=== PATIENT | female | born 2000 | race Caucasian/White ===

== ENCOUNTER 2022-05-01 18:41 | Emergency (ER) | payer OTHER, SELFPAY ==
[2022-05-01 18:55] VITALS: BP 128/84; PULSE 117; RESP 18; TEMP 37.5; O2SAT 100
--- NOTE | 2022-05-01 19:13 | ED.SKABFB ---
HPI - Skin/Abscess/Foreign Bdy General Chief complaint: Skin/Abscess/Foreign Body Stated complaint: rash Time Seen by Provider: 05/01/22 18:43 Source: patient Mode of arrival: ambulatory Limitations: no limitations History of Present Illness HPI narrative: 22-year-old female presents to [facility] with complaints of itchy erythematous rash diffusely for the past 4 days. Patient reports that she has been taking kyrc-svs-yllydiy Benadryl and ibuprofen with little relief. Patient reports that she was diagnosed with COVID 6 days ago at [facility] emergency room. Patient denies shortness of breath, wheezing, trouble swallowing or difficulty breathing MD complaint: rash Onset (ago): day(s) (4) Location: generalized Quality: pruritic Exacerbating factors: none Context: none Treatments prior to arrival: Benadryl Related Data Allergies Allergy/AdvReac Type Severity Reaction Status Date / Time No Known Allergies Allergy Verified 05/01/22 19:04 Review of Systems Constitutional: Constitutional: Denies chills, Denies fatigue, Denies fever(s) and Denies weakness ENT: Denies vertigo and Denies dizziness Respiratory: Respiratory: Denies cough, Denies dyspnea and Denies wheezing Gastrointestinal: Gastrointestinal: Denies diarrhea, Denies nausea and Denies vomiting Integumentary/Breasts: Skin/Breast: Reports pruritus and Reports rash Allergic/Immunologic: Allergic/Immunologic: Denies lip swelling, Denies throat swelling, Denies tongue swelling and Denies wheezing PMFSH Comments At time of signature, I agree with nursing past medical, surgical, social and family history. There is no relevant family history pertinent to the presenting complaint. Exam Const: General: healthy appearing Nutritional Appearance: well nourished Orientation/consciousness: patient oriented x3 Limitations: no limitations HENMT: Head: normal to inspection Face and sinus: normal facial exam Mouth: Yes Normal oral and palatal mucosa present and Yes moist mucous membranes Teeth and gingiva: dentition normal Throat: posterior oropharynx normal and uvula midline Eyes: Conjunctivae: conjunctivae normal Neck: Neck: normal visual inspection Resp: Effort & Inspection: normal respiratory effort and not labored Auscultation: clear to auscultation bilaterally, no crackles, no rales, no rhonchi and no wheezes Cardio: Rate: regular rate Rhythm: regular rhythm Heart sounds: no murmurs Skin: General skin exam: normal color Wounds: no wounds Other: Nonspecific erythematous rash noted diffusely, there are areas of macular papular rash to back, bilateral arms on my exam and few area of hives noted to bilateral lower legs. There are no open wounds, surrounding erythema or signs of infection noted Neuro: General: patient oriented x3 Speech: normal speech Gait exam (Neuro): Normal gait present Psych: Affect: normal affect Attitude: cooperative Course Course Level of Care: Express Care Visit Vital Signs Vital signs: Vital Signs Temperature 37.5 C 05/01/22 18:55 Pulse Rate 117 H 05/01/22 18:55 Respiratory Rate 18 05/01/22 18:55 Blood Pressure 128/84 05/01/22 18:55 Pulse Oximetry 100 05/01/22 18:55 Oxygen Delivery Room Air 05/01/22 18:55 Temperature 37.5 C 05/01/22 18:55 Pulse Rate 117 H 05/01/22 18:55 Respiratory Rate 18 05/01/22 18:55 Blood Pressure 128/84 05/01/22 18:55 Pulse Oximetry 100 05/01/22 18:55 Oxygen Delivery Room Air 05/01/22 18:55 MDM - Skin/Abscess/Foreign Bdy MDM Narrative Medical decision making narrative: Instructed patient to take nmzo-gpu-jpiryvw Zyrtec as needed for itching as Benadryl was making her excessively drowsy. Patient agrees to apply thin layer of triamcinolone ointment to large area of rash twice a day for the next week. Patient agrees to take med or Dosepak as prescribed. Patient understands that she is to follow-up with dermatology or primary care provider if rash i
== END 2022-05-01 19:22 | disposition home or self-care (01) ==
PROVIDERS: Emergency Provider Nurse Practitioner Family
DX: R21 Rash and other nonspecific skin eruption (principal); Z86.16 Personal history of COVID-19
CPT/HCPCS: 99213; G0463

== ENCOUNTER 2022-07-17 08:45 | Emergency (ER) | payer OTHER, SELFPAY ==
[2022-07-17 08:51] VITALS: BP 125/81; PULSE 99; RESP 18; TEMP 36.8; O2SAT 100
[2022-07-17 08:53] VITALS: BP 125/81; PULSE 99; RESP 18; TEMP 36.8; O2SAT 100
--- NOTE | 2022-07-17 09:03 | ED.SKABFB ---
HPI - Skin/Abscess/Foreign Bdy General Chief complaint: Skin/Abscess/Foreign Body Stated complaint: Thumb Lt Hand Pain Time Seen by Provider: 07/17/22 08:55 Source: patient Mode of arrival: ambulatory Limitations: no limitations History of Present Illness HPI narrative: Delicia is a 22-year-old female patient presenting to the clinic today with complaints of left thumb pain. She reports that she noticed on Monday that her thumb was becoming more red and swollen. States 2 days prior that she pulled out a hangnail with her teeth. She denies any fever or chills. She denies any known drainage. She has been applying mupirocin cream to the affected area Related Data Allergies Allergy/AdvReac Type Severity Reaction Status Date / Time No Known Allergies Allergy Verified 07/17/22 08:52 Review of Systems Review of Systems: Pertinent positives per HPI. Patient denies any fever, chills, rash, headache, visual changes, dizziness, cough, runny nose, sore throat, shortness of breath, chest pain, palpitations, nausea, vomiting, diarrhea, constipation, abdominal pain, or any urinary issues. PMFSH Comments At the time of my signature, I reviewed and agree with the nursing past medical, surgical, social, and family history. There is no relevant family history pertinent to the patient complaint. Exam Narrative: General: Well-developed, well nourished, in no apparent distress Head: Normocephalic, atraumatic. Cardio: Regular rate and rhythm, s1 and s2 normal, no murmur appreciated. Resp: Clear to auscultation bilaterally, no rhonchi, rales, wheezing or rubs. Integumentary: [place], warm, and dry, redness, swelling, and tenderness without induration to the left medial distal thumb, scant amount of yellow discharge noted near the cuticle. The bevel of a 22 gauge needle was used to raise the cuticle to allow for any additional drainage however, there was no additional drainage after this was completed. Triple antibiotic ointment and Band-Aid applied. Patient tolerated well Course Course Emergency Course: Portions of this record may have been created with voice recognition software. Level of Care: Express Care Visit Vital Signs Vital signs: Vital Signs Temperature 36.8 C 07/17/22 08:51 Pulse Rate 99 07/17/22 08:51 Respiratory Rate 18 07/17/22 08:51 Blood Pressure 125/81 07/17/22 08:51 Pulse Oximetry 100 07/17/22 08:51 Oxygen Delivery Room Air 07/17/22 08:51 Temperature 36.8 C 07/17/22 08:53 Pulse Rate 99 07/17/22 08:53 Respiratory Rate 18 07/17/22 08:53 Blood Pressure 125/81 07/17/22 08:53 Pulse Oximetry 100 07/17/22 08:53 Oxygen Delivery Room Air 07/17/22 08:53 Vital signs reviewed Procedures Abscess I/D left thumb: Date of Incision: 07/17/22 Side (if applicable): left Amount of anesthesia used (mL): 0 Abcess I&D Additional Comments: Verbal consent obtained to try and drain the paronychia to the left thumb. Risks and benefits reviewed with the patient she voiced understanding. Area was cleansed with alcohol and the bevel of a 22 gauge needle was used to raise the cuticle to allow for any additional drainage however, there was no additional drainage after this was completed. Triple antibiotic ointment and Band-Aid applied. Patient tolerated well MDM - Skin/Abscess/Foreign Bdy MDM Narrative Medical decision making narrative: At the time of visit patient is resting comfortably on the exam table. Attempted to raise the cuticle using a 22 gauge needle however this was unsuccessful. Triple antibiotic ointment and Band-Aid applied. Will have patient continue using mupirocin cream and send prescription for Bactrim DS to her pharmacy. Supportive measures were discussed with the patient she voiced understanding of discharge instructions and agrees to treatment plan. Differential Diagnosis Differential diagnosis: Likely abscess of skin or subcutaneous tissue and other
== END 2022-07-17 09:15 | disposition home or self-care (01) ==
PROVIDERS: Emergency Provider Nurse Practitioner Family
DX: L03.012 Cellulitis of left finger (principal); L60.0 Ingrowing nail; Z86.16 Personal history of COVID-19; F41.9 Anxiety disorder, unspecified; F32.A Depression, unspecified
CPT/HCPCS: 99213; G0463

== ENCOUNTER 2025-01-06 01:31 | Day surgery (SDC) | payer OTHER, SELFPAY ==
[2025-01-02 08:07] VITALS: BMI 20.9
--- NOTE | 2025-01-02 08:14 | PC.NURSE ---
Report to the Outpatient Waiting Room, entrance under the green pavilion located off [facility], at time _0700_ on date _[id number]_. Planned Procedure Time: _0900_.? Time changes happen often and if your time is changed the preop area will call you the afternoon before. - You and your visitor will be asked to self-screen and do not enter if you have any COVID symptoms. Please call surgeon if you need to reschedule. - A mask is optional within the hospital at this time. Patients may have clear liquids (water, carbonated beverages, clear teas, apple juice) until 3 hours prior to surgery with a maximum of 20 ounces. - No food from midnight until time of surgery and no smoking, or chewing tobacco (or any form of nicotine). No chewing gum, candy or mints. Take only the following medications with a SIP of water on the morning of surgery: __Propanolol and if needed Hydroxyzine. DO NOT STOP ANY OF YOUR OTHER PRESCRIPTION MEDICATIONS PRIOR TO SURGERY EXCEPT THE FOLLOWING Hold all vitamins and supplements for 3 days per anesthesiologist. Medications to discontinue per physician Date to take last dose Please no make-up, nail kyrgyz, hairspray, perfume, deodorant, or body powder the day of surgery.? No jewelry (including any body piercings) or valuables the day of surgery, leave them at home.? Please take a shower or bath the night before, or the morning of, surgery with an antibacterial soap.? Wear comfortable, loose fitting clothing.? - Jewelry must be removed prior to entering the operating room.? Rings and piercings that are not removed may be cut off. - The hospital will not accept responsibility for valuables.? - Please leave all valuables, including medications, at home the day of surgery. If you are going home after surgery, a licensed screw driver operator must drive you home.? - NO public transportation without another adult if you receive anesthesia. - We recommend that an adult stay with you for 24 hours following discharge. - We also recommend that you do not drive, make important decision, drink alcoholic beverages, or take any drugs that were not prescribed by your health care provider for at least 24 hours after your discharge time. Follow any additional instructions given to you from your surgeon. Telephone instructions given to __Emkelvin___and asked if any additional questions and then verbalized understanding. Patient advised to call surgeon office or pre surgery nurse liaison [phone] if any additional questions.
[2025-01-06] VITALS (8 sets, daily range): BP systolic 120–130; BP diastolic 74–98; PULSE 52–73; RESP 12–20; TEMP 36.7–37.4; O2SAT 98–100
--- OUTSIDE RECORDS SUMMARY | 2025-01-06 01:34 | XMS_ITS | Referral Summary ---
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/2015 Social History Tobacco Use Types Packs/Day Years Used Date Smoking Tobacco: Every Day E-cigarettes Started: 11/25/2016 Vaping Started: 11/25 Smokeless Tobacco: Never Alcohol Use Standard Drinks/Week Comments Yes 4 (1 standard drink = 0.6 oz pur e alcohol) socially Comments No Sex and Gender Information Value Date Recorded Sex Assigned at Not on file 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 Gender Identity Not on file Sexual Orientation Not on file Last Filed Vital Signs Vital Sign Reading Time Taken Comments Blood Pressure 124/80 01/04/2021 2:39 PM CDT Pulse - - Temperature - - Respiratory Rate - - Oxygen Saturation - - Inhaled Oxygen Concentration - - Weight 64.9 kg (143 lb) 01/04/2021 2:39 PM CDT Height 157.5 cm (5' 2) 01/04/2021 2:39 PM CDT Body Mass Index 26.16 01/04/2021 2:39 PM CDT Plan of Treatment Not on file Insurance [facility] Care Teams Professional Soccer Player Relationship Specialty Start Date End Date Zain Stone MD PCP - General Family Medicine 11/18/19
--- OUTSIDE RECORDS SUMMARY | 2025-01-06 01:34 | XMS_ITS | Clinical Summary ---
Author Organization [facility] Address [address] [place] [address] Care Team Providers Care Linderman Machine Operator Name Role Phone Rudy Perez MD Primary Care Provider Allergies No known active allergies Medications PULSE OXIMETER, DME,Indications:COV ID 1 Device by Other route 6 (six) times daily. 1 Device 2 Active ondansetron (ZOFRAN-ODT) 4 MG disintegrating tablet Take 1 tablet (4 mg total) by mouth every 8 (eight) hours as needed for Nausea. 20 tablet 2 Active ondansetron (ZOFRAN-ODT) 4 MG disintegrating tablet Take 1 tablet (4 mg total) by mouth every 8 (eight) hours as needed. 20 tablet 4 Active ketorolac (TORADOL) 10 MG tablet Take 1 tablet (10 mg total) by mouth every 8 (eight) hours as needed for Pain. 16 tablet 4 Active Active Problems Problem Noted Date Diagnosed Date Mononucleosis 02/27/2021 Transaminitis 02/25/2021 Family History Medical History Relation Comments Diabetes Maternal Grandmother Hypertension Maternal Grandmother Relation Status Comments Maternal Grandmother Social History Tobacco Use Types Packs/Day Years Used Date Smoking Tobacco: Every Day Smokeless Tobacco: Never Comments:flavored vapes sisi y Alcohol Use Standard Drinks/Week Comments Yes 0 (1 standard drink = 0.6 oz pur e alcohol) drinks only socially Comments No Sex and Gender Information Value Date Recorded Sex Assigned at Not on file Legal Sex Female 8:21 PM CDT Gender Identity Not on file Sexual Orientation Not on file Last Filed Vital Signs Vital Sign Reading Time Taken Comments Blood Pressure 125/88 05/17/2024 7:40 PM GRADUATE RESEARCH ASSISTANT Pulse 68 05/17/2024 7:40 PM GRADUATE RESEARCH ASSISTANT Temperature 36.6 C (97.8 F) 05/17/2024 7:40 PM GRADUATE RESEARCH ASSISTANT Respiratory Rate 19 05/17/2024 5:00 PM GRADUATE RESEARCH ASSISTANT Oxygen Saturation 87% 05/17/2024 5:00 PM GRADUATE RESEARCH ASSISTANT Inhaled Oxygen Concentration - - Weight 63 kg (139 lb) 05/17/2024 4:32 PM GRADUATE RESEARCH ASSISTANT Height 157.5 cm (5' 2) 05/17/2024 4:32 PM GRADUATE RESEARCH ASSISTANT Body Mass Index 25.42 05/17/2024 4:32 PM GRADUATE RESEARCH ASSISTANT Plan of Treatment Health Maintenance Due Date Last Done Comments Cervical Cancer Screening Pa p Smear (Age 21 to 29) Every 3 Years 2000 Cervical Cancer Screening 2000 Annual Physical 01/11/2003 HPV Vaccines (1 - 3-dose series) 01/11/2015 DTaP, Tdap and Td Vaccines ( 3 - Tdap) 01/11/2019 2000, 2000 Hepatitis B Vaccines (1 of 3 - 19+ 3-dose series) 01/11/2019 Pneumococcal Vaccine: Pediatrics (0 to 5 Years) and At-Risk Patients (6 to 49 Years) (1 of 2 - PCV) 01/11/2019 COVID-19 Vaccine (2023-2 5 season) 2024 Hepatitis C Completed 02/25/2021 Meningococcal B Vaccine Aged Out No l onger eligible based on patient's age to complete this topic Meningococcal Vaccine Aged Out No noe amanda eligible based on patient's age to complete this topic RSV Immunizations Under 20 Months Aged Out No longer eligible b ased on patient's age to complete this topic Goals Goal Patient Goal Type Associated Problems Recent Progress Patient-Stated? Author Health - patient able to perform ADLs independently General No Gretta Venegas, field court researcher Procedure Name Priority Date/Time Associated Diagnosis Comments HEPATITIS PANEL,ACUTE Routine 02/25/2021 7:10 AM CDT from Last 3 Months or Most Recently Relevant to Health Maintenance Results * HEPATITIS PANEL,ACUTE (02/25/2021 7:10 AM CDT) HEPATITIS B SURFACE AG NON-REACTI VE NON-REACTI VE 02/25/2021 9:33 AM CDT [facility] HEP B CORE IGM NON-REACTI VE NON-REACTI VE 02/25/2021 9:40 AM CDT [facility] HAV IGM NON-REACTI VE NON-REACTI VE 02/25/2021 9:39 AM CDT [facility] HEPATITIS C AB NON-REACTI VE NON-REACTI VE 02/25/2021 9:39 AM CDT [facility] 02/25/2021 7:10 AM CDT us Jaye Lopez MD LABORATORY Final Re sult [facility] [address] [place] [address], from Last 3 Months or Most Recently Relevant to Health Maintenance Insurance [employer] Advance Directives * Full Code (Latest Code Status on File) Date Activated Date Inactivated Comments 02/25/2021 3:36 AM 02/27/2021 4:28 PM Care Teams Linderman Machine Operator Relationship Specialty Start Date End Date Rudy Perez MD [address] [facility] [place] [phone] PCP - General 05/17/24
--- OUTSIDE RECORDS SUMMARY | 2025-01-06 01:34 | XMS_ITS | Clinical Summary ---
Author Organization [facility] Address [address] [place] [address] Care Team Providers Care Ladder Operator Name Role Phone Rudy Perez MD Primary Care Provider Allergies No known active allergies Medications LORazepam (ATIVAN) 1 mg tabletIndication s:Palpitations Take 1 Tablet (1 mg) by mouth every 6 hours as needed for Discomfort. 12 Tablet 07/07/2023 Active propranoloL (INDERAL) 20 mg tablet Take 20 mg by mouth 3 times daily. Active dextroamphetamin e-amphetamine (ADDERALL) 10 mg tablet Take 10 mg by mouth daily. Active ondansetron (ZOFRAN) 4 mg/5 mL Solution Take 5 mg by mouth every 8 hours as needed for Nausea. Active traZODone (DESYREL) 50 mg tablet Take 10 mg by mouth daily at bedtime. Active fluconazole (DIFLUCAN) 150 mg tablet Take 1 Tablet (150 mg) by mouth every third day. 2 Tablet 11/10/2023 Active Active Problems No known active problems Encounters Date Type Department Care Team Description 11/07/2024 External Device Data [facility] ABSTRACTION Provider, Abstract 11/07/2024 External Device Data [facility] ABSTRACTION Provider, Abstract 11/06/2024 External Device Data [facility] ABSTRACTION Provider, Abstract 11/05/2024 External Device Data [facility] ABSTRACTION Provider, Abstract 10/29/2024 External Device Data [facility] ABSTRACTION Provider, Abstract 10/29/2024 External Device Data [facility] ABSTRACTION Provider, Abstract 10/29/2024 External Device Data [facility] ABSTRACTION Provider, Abstract from Last 3 Months Family History Medical History Relation Name Comments Breast Cancer Neg Hx Colon Cancer Neg Hx Ovarian Cancer Neg Hx Relation Name Status Comments Brother Alive Father Alive Maternal Grandfather Maternal Grandmother Mother Alive Paternal Grandfather Paternal Grandmother Alive Sister 1 Alive Sister 2 Alive Social History Tobacco Use Types Packs/Day Years Used Date Smoking Tobacco: Never Smokeless Tobacco: Never Tobacco Cessation:Counseling Given: Not Answered Alcohol Use Standard Drinks/Week Comments Yes 0 (1 standard drink = 0.6 oz pur e alcohol) Comments No Sex and Gender Information Value Date Recorded Sex Assigned at Not on file Legal Sex Female 11:20 AM IT SUPPORT ANALYST Gender Identity Not on file Sexual Orientation Not on file 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, 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 Not on file Not on file Not on file Last Filed Vital Signs Vital Sign Reading Time Taken Comments Blood Pressure 127/86 11/10/2023 9:40 PM CDT Pulse 67 11/10/2023 9:40 PM CDT Temperature 37.1 C (98.8 F) 11/10/2023 7:08 PM CDT Respiratory Rate 19 11/10/2023 7:08 PM CDT Oxygen Saturation 96% 11/10/2023 9:40 PM CDT Inhaled Oxygen Concentration - - Weight 61.2 kg (135 lb) 11/10/2023 7:08 PM CDT Height 157.5 cm (5' 2) 11/10/2023 7:08 PM CDT Body Mass Index 24.69 11/10/2023 7:08 PM CDT Plan of Treatment Health Maintenance Due Date Last Done Comments HPV VACCINES (1 - 3-dose series) 01/11/2015 DTAP/TDAP/TD VACCINES (1 - Tdap) 01/11/2019 HEPATITIS B VACCINES (1 of 3 - 19+ 3-dose series) 12/18 CERVICAL CANCER SCREENING 01/11/2021 HPV/Cotest (21-29) 01/11/2021 PAP SMEAR 01/11/2021 INFLUENZA VACCINE (#1) 2025 CHLAMYDIA SCREENING (ANNUAL) 11-24 YEARS Discontinued 11/08/2023 Procedures Procedure Name Priority Date/Time Associated Diagnosis Comments VAGINOSIS/VAGINITIS PANEL PLUS Routine 11/08/2023 2:22 PM CDT IUD check up Pelvic pain in female from Last 3 Months or Most Recently Relevant to Health Maintenance Results * (ABNORMAL) VAGINOSIS/VAGINITIS PANEL PLUS (11/08/2023 2:22 PM CDT) BACTERIAL VAGINOSIS NEGATIVE NEGATIVE [facility] ESTEPHANIA SPECIES DETECTED(A) NOT DETECTED [facility] ESTEPHANIA GLABRATA NOT DETECTED NOT DETECTED [facility] Comment: Estephania species C. albicans, C. tropicalis, C. parapsilosis, and/or C. dubliniensis can be detected, but not differentiated, in the Estephania spp. result. TRICHOMONAS VAGINALIS (TV), TMA NOT DETECTED NOT DETECTED [facility] C TRAC RNA NOT DETECTED NOT DETECTED [facility] N.GONORRHOEAE RNA, TMA NOT DETECTED NOT DETECTED [facility] Comment: For additional information, please refer to https://education.Niblitz/faq/DUR874 (This link is being provided for information/ educational purposes only.) Test Performed at: [facility] [id number] [place] [address] Gianfranco May MD Genital SPECIMEN FROM VAGINA / Unknown 11/08/2023 2:22 PM CDT 11/09/2023 5:10 AM CDT Ericka jack MD MICROBIOLOGY - GENERAL ORDERABLES Final Result [facility] [phone] [facility] [address] [place] [address] from Last 3 Months or Most Recently Relevant to Health Maintenance Insurance [employer] CHOICE POS II Care Teams Ladder Operator Relationship Specialty Start Date End Date Rudy Perez MD [address] [place] [phone] PCP - General Family Practice 10/04/23
--- OUTSIDE RECORDS SUMMARY | 2025-01-06 01:34 | XMS_ITS | Clinical Summary ---
Author Organization [facility] Address [address] [place] [phone] Care Team Providers Care Press Tender Long Goods Name Role Phone Zain Stone MD Primary Care Provider [phone] Allergies No known active allergies Medications levonorgestreL (ANETA) 14 mcg/24 hrs (3 yrs) 13.5 mg IUD 1 each by intrauterine route once Active Active Problems Problem Noted Date Diagnosed Date Rash 03/13/2015 Postinflammatory hyperpigmentation 03/13/2015 Family History Medical History Relation Name Comments No Known Problems Brother No Known Problems Father Hypertension Mother No Known Problems Sister 1 No Known Problems Sister 2 Breast cancer Neg Hx Ovarian cancer Neg Hx Uterine cancer Neg Hx Relation Name Status Comments Brother Alive Father Alive Mother Alive Sister 1 Alive Sister 2 Alive [...] on file Legal Sex Female 7:04 PM DOCUMENTATION ENGINEER Gender Identity Not on file Sexual Orientation Not on file Obstetrics History Para Term AB IAB SAB Ectopic Multiple Livin g Live Births 0 0 0 0 0 0 0 0 0 0 0 Last Filed Vital Signs Vital Sign Reading [...] Plan of Treatment Not on file [facility] [employer] [facility] H[facility] Care Teams Press Tender Long Goods Relationship Specialty Start Date End Date Zain Stone MD PCP - General Family Medicine 11/18/19
[2025-01-06] MEDS: LACTATED RINGERS 1,000 ML 30 ML IV CONT ×2 (07:30→11:18)
[2025-01-06] MEDS: ACETAMINOPHEN 500 MG TABLET 1000 MG PO (07:32)
[2025-01-06] MEDS: KETOROLAC 15 MG/ML VIAL (*BKC) IV PUSH (07:36)
[2025-01-06 08:06] LABS: BEDSIDEPREGUCG Negative (Negative)
--- NOTE | 2025-01-06 08:26 | WPDHPUPDATE1 ---
History and Physical Update Update Date/Time: 01/06/25 08:26 History and Physical has been reviewed, including an updated exam of the patient. There are NO changes in the patient's condition. Risks, benefits, and alternatives have been discussed and questions answered. Patient agrees to proceed with diagnostic laparoscopy, possible ovarian cystectomy, possible fulguration of endometriosis, possible peritoneal biopsy, possible chromopertubation, and cystoscopy.
--- NOTE | 2025-01-06 08:45 | P.PNAN_ITS ---
Anes - Initial Pre Proc Eval Procedure: Operation Date: 01/06/25 09:00 Proposed Procedures p Diagnostic Laparoscopy Possible Laparoscopic Right Ovarian Cystectomy, Possible Laparoscopic Fulguration of Endometriosis, Possible Laparoscopic Peritoneal Biopsy, Possible Chromopertubation - Darlene Pittman MD s Cystoscopy - Darlene Pittman MD Date/Time: 01/06/25 08:45 Surgeon: Darlene Pittman MD Pre Op Diagnosis: Pelvic Pain Patient Data Age: 24 Gender: F Height: 1.57 m Weight: 51.7 kg Last Vital Signs Temp 37.4 C 01/06/25 07:23 Pulse 70 01/06/25 07:23 Resp 20 01/06/25 07:23 BP 127/74 01/06/25 07:23 Pulse Ox 100 01/06/25 07:23 O2 Del Method Room Air 01/06/25 07:23 Allergies Allergy/AdvReac Type Severity Reaction Status Date / Time No Known Allergies Allergy Verified 01/06/25 07:48 Home Medications ?Medication ?Instructions ?Recorded ?Confirmed ?Type dicyclomine 10 mg capsule 10 mg PO TID PRN abdominal pain 12/19/24 01/02/25 History hydroxyzine HCl 25 mg tablet 25 mg PO TID PRN anxiety 12/19/24 01/02/25 History ondansetron 4 mg disintegrating 4 mg PO TID PRN nausea and vomiting 12/19/24 01/02/25 History tablet propranolol 10 mg tablet 10 mg PO BID 12/19/24 01/06/25 History acetaminophen 500 mg tablet 1,000 mg (2 x 500 mg) PO TID #60 01/06/25 Rx tabs docusate sodium 100 mg capsule 100 mg PO BID #90 caps 01/06/25 Rx (Colace) ibuprofen 800 mg tablet 800 mg PO TID #30 tabs 01/06/25 Rx oxycodone 5 mg tablet 5 mg PO Q4H PRN pain #15 tabs 01/06/25 Rx Laboratory Tests 01/06/25 07:15 POC Urine HCG, Qual Negative (Negative) Patient hx anesthesia problems: none Family hx anesthesia problems: none Results Review: All pre-operative results and documents have been reviewed as part of the pre- operative evaluation. [facility] Past Medical History Medical History POTS (postural orthostatic tachycardia syndrome) IBS (irritable bowel syndrome) Anxiety Family History Family History Grandparent Diabetes mellitus Hypertension Social History Social History Years smoked: 5 Smoking status: Former smoker Tobacco type: cigarettes and e-cigarettes/vaping Additional smoking assessment comments: Quit vaping 2 years ago. 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 Gender identity (if verbalized by the patient): Female Sexual Orientation (if Verbalized by the Patient): Straight or Heterosexual Spiritual care concerns: No Anes - Eval Final PreProcedure Day of Procedure 01/06/25 08:45 Patient weight: normal Heart: regular rate and rhythm Lungs: clear to auscultation Airway: Mallampati scale class II Neurological: alert and oriented Last oral intake: >/= 8 hours ASA classification: II Emergent: no Anesthetic plan: proceed Anesthesia type and monitoring: general ETT and standard monitoring Results Review: All pre-operative results and documents have been reviewed as part of the pre- operative evaluation. Informed Consent: The patient's anesthetic plan and its attendant risks and benefits were discussed with the patient/family/POA. Questions were solicited and answers provided to the satisfaction of the patient/family/POA.
[2025-01-06] MEDS: SCOPOLAMINE 1 MG PATCH 1 PATCH TRANSDERM (08:49)
[2025-01-06] MEDS: BUPIVACAINE/EPINEPHRINE 0.5% 50 ML VIAL 30 ML INFILTRATE (10:00)
--- NOTE | 2025-01-06 10:44 | S_PTH ---
PATIENT: Delicia Altman LOC: [facility] U#:[id number] AGE/SX: 24/F ROOM: RE01/06/[address]: Darlene Pittman MD : 2000 BED: DIS: 01/06/2025 SPEC #: [id number] RECD: 01/06/25 11:56 STATUS: [place] REQ #: [id number] NORMA: 01/06/25 10:[address]: Darlene Pittman DEPT: [facility] Surgical RECD BY: Jazzy Clark Tissues: A - Peritoneum Procedures: Gross and Microscopic Level 4
[2025-01-06] MEDS: METHYLENE BLUE 0.5% INJ 10 ML AMPULE 20 ML IRRIGATION (10:49)
--- NOTE | 2025-01-06 11:10 | P.OP_ITS ---
Procedure Note - Detailed Date of Procedure 01/06/25 Pre-op Diagnosis Pelvic Pain Post-op Diagnosis Other (endometriosis) Procedure Performed Diagnostic laparoscopy, posterior cul-de-sac peritoneal biopsy, fulguration of endometriosis, chromopertubation, and cystoscopy Surgeon Darlene Pittman MD Anesthesia General and Local (17cc of 0.5% marcaine w/ epi) Findings Uterus slightly retroverted, sounded to 7.5cm, normal appearing cervix. Endometriosis (gun powder) lesions noted in the posterior cul-de-sac, biopsy taken under the junction of the uterosacral ligaments; other lesions were fulgurated. (pictures obtained) Normal ovaries bilaterally. Normal uterus. Left fallopian tube adhesions to the left pelvic side wall which were easily taken down. (pictures obtained) Chromopertubation with spillage from bilateral fallopian tubes. (pictures obtained) Normal bladder without ulcers/lesions. (pictures obtained) Description of Procedure Delicia was taken to the operating room where she was placed under general endotracheal anesthesia without complications. She was then prepped and draped in the usual sterile fashion in the dorsal lithotomy position with her legs in low Toribio stirrups and her arms tucked at her side with a strap over her chest. A time-out was performed and no preoperative antibiotics were indicated. My attention was turned down below where her bladder was drained via straight catheterization. A bivalve speculum was then placed within the vagina where the cervix was easily identified. The anterior lip of the cervix was grasped with a single-tooth tenaculum, the uterus was sounded, and a diagnostic uterine manipulator was placed without complications. My gloves were changed and my attention was turned to her abdomen. An umbilical incision was made, and a 5 mm trocar was placed under direct visualization without complications. Once intra- abdominal placement was confirmed the abdomen was insufflated with carbon dioxide gas. She was then placed in Trendelenburg and endometriosis was noted in the posterior cul-de-sac, so two additional 5 mm ports were placed. The ports were placed in the left and right lower quadrants under direct visualization without complications. The right ovary/tube was gently elevated and no further endometriosis was noted. The left fallopian tube was then attempted to be elevated but it was noted that it had adhesions to the pelvic side wall. The largest of the gun powder endometriosis lesions was elevated and the surrounding peritoneum was then clamped, coagulated, and transected using the LigaSure device. That biopsy was removed and sent to pathology. The remaining gunpowder lesions in the posterior cul-de-sac around the pelvic sidewalls and uterosacrals were then fulgurated using the LigaSure monopolar L hook. The pelvis was very carefully examined and no additional endometriosis was identified. The left fallopian tube was then gently elevated and the thin filmy adhesions were taken down using the LigaSure device without complication. Good hemostasis was noted throughout. 5 cc of methylene blue was then placed within 45 cc of normal saline and that was pushed through the uterine manipulator. Methylene blue spillage was noted from the bilateral fallopian tubes. The pelvis was then irrigated and suctioned free of all blood/fluid/methylene blue. Good hemostasis was noted. All instruments were removed from the abdomen. The insufflation was released and the trocars were removed. The 3 laparoscopic incision sites were reapproximated using 4-0 Monocryl and covered with Dermabond. The incisions were then infiltrated using 0.5% Marcaine with epinephrine. The uterine manipulator was removed. The cystoscope was then placed within the bladder and the bladder easily filled. All areas of the bladder were examined and no masses or ulcerations were identified. The bladder was drained and the cystoscope was removed and that was the completion of the surgery. Sponge, lap, instrument, and needle counts were correct at the end of the procedure. Patient was awoken from general anesthesia and taken to recovery with plans of same-day discharge home. Estimated Blood Loss 10 IV Fluids 1,000 Urine Output 20 Pathology Yes Complications No immediate complications Condition Stable Disposition Same day [facility] Billing Surgery - Charge Forward: Surgery Billing
[2025-01-06] MEDS: fentaNYL CITRATE INJ (*CRX) 100 MCG/2 ML VIAL 25 MCG IV PUSH ×3 (11:44→11:53)
== END 2025-01-06 13:07 | disposition home or self-care (01) ==
PROVIDERS: Visit Provider Obstetrics & Gynecology
PROC: (CPT 49320; principal; 2025-01-06 09:00)
PROC: 0TJB8ZZ Inspection of Bladder, Via Natural or Artificial Opening Endoscopic (ICD-10-PCS; CPT 52000; 2025-01-06 09:00)
DX: N73.5 Female pelvic peritonitis, unspecified (principal); N80.3C3 Endometriosis of bilateral uterosacral ligament(s), unspecified depth; N80.353 Endometriosis of bilateral pelvic sidewall, unspecified depth; N73.6 Female pelvic peritoneal adhesions (postinfective); R35.0 Frequency of micturition; R39.15 Urgency of urination; Z87.891 Personal history of nicotine dependence; F12.90 Cannabis use, unspecified, uncomplicated
CPT/HCPCS: 58662; 52000; 88305; A9270; J1100; J1885; J2003; J2250; J2405; J2704; J3010; J7120; Q9968